=== PATIENT | female | born 1970 | race Caucasian/White ===

== ENCOUNTER 2018-09-09 20:16 | Emergency (ER) | payer OTHER ==
--- NOTE | 2018-09-09 20:25 | PDOC ---
Rapid Medical Evaluation Time Seen by Provider: 09/09/18 20:21 Medical Evaluation: 09/09/18 20:21 The patient presents with a chief complaint of: back pain x 2 days I have performed a brief in-person evaluation of this patient Pertinent physical exam findings: [id number] I have ordered the following: none The patient will proceed to the ED for further evaluation. Discharge Disposition - Diagnosis Back pain - Referrals - Patient Instructions - Post Discharge Activity
[2018-09-09 20:35] VITALS: BP 127/64; PULSE 61; TEMP 97.8; BMI 32.2
--- NOTE | 2018-09-09 21:08 | PDOC ---
History of Present Illness - General Chief Complaint: Cold Symptoms Stated Complaint: BODYACHES/FEVER Time Seen by Provider: 09/09/18 20:21 - History of Present Illness Initial Comments: 09/09/18 21:06 47-year-old female without comorbidities presents for evaluation of flulike symptoms 2 and half days Past History - Past Medical History Allergies/Adverse Reactions: Allergies Allergy/AdvReac Type Severity Reaction Status Date / Time No Known Allergies Allergy Verified 09/09/18 20:25 Home Medications: Ambulatory Orders Oseltamivir Phosphate [Tamiflu] 75 mg PO BID #10 capsule 09/09/18 COPD: No - Suicide/Smoking/Psychosocial Hx Smoking History: Never smoked Have you smoked in the past 12 months: No Information on smoking cessation initiated: No Hx Alcohol Use: No Drug/Substance Use Hx: No Review of Systems - Review of Systems Constitutional: Yes: See HPI, Chills, Fever, Malaise, Night Sweats HEENTM: Yes: Nose Congestion Respiratory: Yes: Cough *Physical Exam - Vital Signs Last Vital Signs Temp Pulse Resp BP Pulse Ox 97.8 F 61 17 127/64 100 09/09/18 20:24 09/09/18 20:24 09/09/18 20:24 09/09/18 20:24 09/09/18 20:24 - Physical Exam Comments: 09/09/18 21:06 HEAD: NC/AT EYES: Conjuntiva clear Ears: Canals and TM's normal NOSE: No d/c THROAT: Moist mucous membrances, oral pharanx clear, uvula midline NECK: Supple without adenopathy CARDIAC: S1 S2 LUNGS: CTA Full and Equal breath sounds ABDOMEN: Soft NT ND MS: Full ROM in all joints without edema NEUROLOGIC: No gross sensory or motor deficits, NVID SKIN: Normal color and temperature no lesions or rashes Medical Decision Making - Medical Decision Making 09/09/18 21:06 We'll treat for flu based on symptoms discussed use of Tylenol and Motrin *DC/Admit/Observation/Transfer Diagnosis at time of Disposition: Influenza Diagnosis at time of Disposition: (Ruled Out): Back pain - Discharge Dispostion Disposition: HOME Condition at time of disposition: Stable Decision to Admit order: No - Referrals Referrals: Fahad Fernández [Non Staff, Medical] - - Patient Instructions Printed Discharge Instructions: Influenza Additional Instructions: Return to the emergency room for worsening symptoms. Please take Tamiflu for the next 5 days as directed. Follow-up with your primary care physician in one to 2 days for further evaluation and treatment options and return to the emergency room for worsening symptoms. - Post Discharge Activity
== END 2018-09-09 21:13 | disposition home or self-care (01) ==
LOC: JERFT 20:16
DX: J11.1 Influenza due to unidentified influenza virus with other respiratory manifestations (principal)
CPT/HCPCS: 99281-25